=== PATIENT | female | born 1990 | race Caucasian/White ===

== ENCOUNTER → 2017-07-11 | Outpatient (CLI) | payer BC ==
[~2017-07-11] MED LIST: ACET-1311 PO; ATEN50TA8 PO; BCPILLS PO; CITA20TA9 PO; IBUP-1050 PO; OPTIRAY 320 IV PRN
--- NOTE | 2017-07-11 14:07 | DIAGNOSTIC IMAGING REPORT ---
ANGIOGRAPHY HEAD COMBO CLINICAL HISTORY: 27 years-old Female presents with right-sided pulsatile tinnitus. Reported abnormal finding on MRI the brain which is not available at time of dictation. COMPARISON STUDY: None available TECHNIQUE: Unenhanced axial CT scan of the brain is performed. Subsequently, following the IV administration of 94 cc of Optiray 320, CT angiogram of the brain was performed from the skull base to the vertex. Images are reviewed in the axial, sagittal, and coronal planes. 3-D MIPS images are created and assessed. IV contrast was administered without complication. A dose lowering technique was utilized adhering to the principles of ALARA. CT DOSE: 669.84 mGy.cm FINDINGS: CT BRAIN: There is no acute intracranial hemorrhage, midline shift, hydrocephalus, intracranial mass, territorial ischemia or abnormal extra-axial collections. No abnormal intra-axial or extra-axial enhancement. Mastoid air cells and middle ear cavities are clear. No calvarial fracture. Paranasal sinuses are clear. CT ANGIOGRAM OF THE BRAIN: The imaged bilateral internal carotid arteries are patent. The bilateral anterior and middle cerebral arteries are also patent. The vertebrobasilar system and posterior cerebral arteries are widely patent. There is no aneurysm, high-grade stenosis, or proximal branch occlusion identified. 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 Dural sinuses appear patent. There is mild hypoplasia of the left transverse venous sinus. Linear calcification within the region of the medial aspect left transverse venous sinus is seen, 1.1 x 0.3 cm which is nonspecific. No acute venous sinus thrombosis identified. Bilateral sigmoid sinuses and imaged internal jugular veins appear patent. IMPRESSION: 1. No high-grade stenosis, aneurysm, proximal branch occlusion, or dissection. 2. 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 The above report was generated using voice recognition software. It may contain grammatical, syntax or spelling errors. Electronically signed by: Vishal Byers M.D. 07/11/2017 2:06 PM Dictated Date/Time: 07/11/2017 1:29 PM
== END | disposition home or self-care (01) ==
LOC: C.CTS 12:23
PROVIDERS: ATTEND Physician Assistant
DX: H93.A9 Pulsatile tinnitus, unspecified ear (principal); R90.89 Other abnormal findings on diagnostic imaging of central nervous system